=== PATIENT | male | born 1995 | race Caucasian/White ===

== ENCOUNTER 2018-05-31 08:21 | Emergency (ER) | payer OTHER ==
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
[2018-05-31 09:02] VITALS: BP 137/77
== END 2018-05-31 09:02 | disposition short-term general hospital (02) ==
LOC: UCCORT 08:21
DX: R10.84 Generalized abdominal pain (principal); R11.10 Vomiting, unspecified; S09.93XA Unspecified injury of face, initial encounter; Y04.0XXA Assault by unarmed brawl or fight, initial encounter; Y92.9 Unspecified place or not applicable; Z88.0 Allergy status to penicillin; F17.210 Nicotine dependence, cigarettes, uncomplicated
CPT/HCPCS: 99213; G0463

== ENCOUNTER 2019-01-07 20:29 | Emergency (ER) | payer MEDICAID, OTHER ==
[2019-01-07 20:42] VITALS: BP 139/84
[2019-01-07] MEDS ORDERED: predniSONE TAB* 20 MG PO ONE (20:46)
[2019-01-07] MEDS ORDERED: hydrOXYzine HCL TAB* 25 MG PO ONE (20:47)
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
== END 2019-01-07 21:30 | disposition home or self-care (01) ==
LOC: UCEAST 20:29
DX: T63.441A Toxic effect of venom of bees, accidental (unintentional), initial encounter (principal); Y92.9 Unspecified place or not applicable; F17.210 Nicotine dependence, cigarettes, uncomplicated; Z88.0 Allergy status to penicillin
CPT/HCPCS: 99212; A9270-GY; G0463; J7512

== ENCOUNTER 2019-09-19 20:27 | Emergency (ER) | payer MEDICAID, OTHER ==
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
[2019-09-19 21:59] LABS: ABS Basophils 0.1 10^3/ul (0-0.2); ABS Eosinophils 0.1 10^3/ul (0-0.6); ABS Lymphocytes 1.2 10^3/ul (1.0-4.8); ABS Monocytes 0.6 10^3/ul (0-0.8); ABS Neutrophils 6.7 10^3/ul (1.5-7.7); Eosinophil % 0.7 %; Hematocrit 43 % (42-52); Hemoglobin 15.5 g/dL (14.0-18.0); Mean Corpuscular HGB Conc 36 g/dL (31-36); Mean Corpuscular Hemoglobin 33 pg (27-31); Mean Corpuscular Volume 91 fL (80-94); Mean Platelet Volume 7.5 fL (7.4-10.4); Platelet Count 247 10^3/uL (150-450); Red Blood Count 4.74 10^6 /uL (4.18-5.48); Red Cell Distribution Width 13 % (10-15); White Blood Count 8.5 10^3/uL (3.5-10.8)
[2019-09-19 22:03] LABS: INR 0.98 (0.82-1.09)
[2019-09-19 22:16] LABS: Albumin 4.6 g/dL (3.2-5.2); Albumin/Globulin Ratio 1.8 (1-3); BUN/Creatinine Ratio 11.1 (8-20); Calcium 10.1 mg/dL (8.6-10.3); EGFR African American 141.7 (>60); EGFR Non-African American 117.1 (>60); Globulin 2.5 g/dL (2-4); Potassium 3.8 mmol/L (3.5-5.0); Total Bilirubin 0.4 mg/dL (0.2-1.0); Total Protein 7.1 g/dL (6.4-8.9)
[2019-09-19] MEDS ORDERED: SUMAtriptan SQ* 6 MG/0.5 ML VIAL SUBCUT ONE (22:30)
[2019-09-19] MEDS ORDERED: Ibuprofen TAB* 600 MG PO ONE (22:37)
[2019-09-19 23:55] VITALS: BP 130/79
== END 2019-09-19 23:55 | disposition home or self-care (01) ==
LOC: ED 20:27
DX: G43.909 Migraine, unspecified, not intractable, without status migrainosus (principal); R42 Dizziness and giddiness; R07.9 Chest pain, unspecified; R20.0 Anesthesia of skin; F17.210 Nicotine dependence, cigarettes, uncomplicated; Z88.0 Allergy status to penicillin
CPT/HCPCS: 36415; 70450; 80053; 83605; 84484; 85025; 85610; 96372; 99282; A9270-GY; J3030